=== PATIENT | female | born 1975 | race Caucasian/White ===

== ENCOUNTER 2020-06-30 17:24 | Emergency (ER) | payer OTHER ==
[~2020-06-30] VITALS: Ht 172.7 cm; Wt 82.1 kg
== END 2020-06-30 18:47 | disposition home or self-care (01) ==
LOC: ER 17:24
DX: S61.022A Laceration with foreign body of left thumb without damage to nail, initial encounter (principal); W26.0XXA Contact with knife, initial encounter; Y93.89 Activity, other specified; Y92.010 Kitchen of single-family (private) house as the place of occurrence of the external cause; Y99.8 Other external cause status

== ENCOUNTER → 2022-04-28 07:40 | Outpatient (CLI) | payer OTHER | END | disposition home or self-care (01) | LOC: LAB 07:40 | PROVIDERS: ATTEND Obstetrics & Gynecology | DX: E03.8 Other specified hypothyroidism (principal); E83.51 Hypocalcemia; E11.9 Type 2 diabetes mellitus without complications; N30.00 Acute cystitis without hematuria; I10 Essential (primary) hypertension ==

== ENCOUNTER 2022-04-28 08:12 | Outpatient (CLI) | payer OTHER | END 2022-04-28 08:21 | disposition home or self-care (01) | LOC: MAMO-SONO 08:12 | PROVIDERS: ATTEND Obstetrics & Gynecology | DX: N60.11 Diffuse cystic mastopathy of right breast (principal); N60.12 Diffuse cystic mastopathy of left breast; Z12.31 Encounter for screening mammogram for malignant neoplasm of breast ==

== ENCOUNTER 2023-03-27 07:02 | Outpatient (CLI) | payer OTHER | END 2023-03-27 07:04 | disposition home or self-care (01) | LOC: LAB 07:02 | PROVIDERS: ATTEND Obstetrics & Gynecology | DX: E06.3 Autoimmune thyroiditis (principal) ==

== ENCOUNTER → 2023-05-14 07:51 | Outpatient (CLI) | payer OTHER | END | disposition home or self-care (01) | LOC: LAB 07:51 | PROVIDERS: ATTEND Obstetrics & Gynecology | DX: E78.49 Other hyperlipidemia (principal); E03.8 Other specified hypothyroidism; N30.00 Acute cystitis without hematuria; E55.9 Vitamin D deficiency, unspecified; I10 Essential (primary) hypertension; Z12.11 Encounter for screening for malignant neoplasm of colon ==

== ENCOUNTER 2023-05-14 11:28 | Outpatient (CLI) | payer OTHER | END 2023-05-14 11:49 | disposition home or self-care (01) | LOC: MAMO-SONO 11:28 | PROVIDERS: ATTEND Obstetrics & Gynecology | DX: E04.1 Nontoxic single thyroid nodule (principal); N60.11 Diffuse cystic mastopathy of right breast; N60.12 Diffuse cystic mastopathy of left breast; Z12.31 Encounter for screening mammogram for malignant neoplasm of breast ==

== ENCOUNTER → 2023-10-31 07:39 | Outpatient (CLI) | payer OTHER ==
[2023-10-31 08:07] LABS: HEMOGLOBIN 13.4 g/dL (12.0-15.00); MEAN CELL VOLUME 84.6 fL (80.00-100.00); MEAN CORPUSCULAR HEMOGLOBIN 28.4 pg (27.00-32.0); MEAN CORPUSCULAR HGB CONC 33.6 g/dl (32.0-36.0); PLATELET COUNT 335 K/uL (150-450); RED BLOOD COUNT 4.72 M/uL (4.00-6.00); RED CELL DISTRIBUTION WIDTH 14.2 % (11.5-14.5)
[2023-10-31 08:09] LABS: URINE APPEARANCE Clear; URINE BILIRRUBIN Negative (NEGATIVE); URINE BLOOD Negative; URINE COLOR Yellow; URINE GLUCOSE Negative (NEGATIVE); URINE LEUKOCYTE Negative; URINE NITRATE Negative; URINE PROTEIN Negative (NEGATIVE)
[2023-10-31 08:10] LABS: URINE BACTERIA 85.6 uL (0.0-1933); URINE EPITHELIAL CELLS 4.3 uL (0.0-38.8); URINE RBC 3.8 uL (0.0-20.8); URINE WBC 1.8 uL (0.0-23.2)
[2023-10-31 08:53] LABS: URIC ACID 4.1 mg/dL (2.5-7.5)
[2023-10-31 08:58] LABS: ALBUMIN 3.9 gm/dL (3.4-5.0); BILIRUBIN TOTAL 1.15 mg/dL (0.3-1.2); CALCIUM 8.9 mg/dL (8.5-10.1); CHOL HDL RATIO 2.6 (0-5.0); CREATININE SERUM 0.82 mg/dL (0.55-1.02); GFR 75.39; GLOBULINA 3.3 G/DL (2.4-3.5); POTASSIUM 3.85 mEq/L (3.5-5.1); T4 FREE 0.87 NG/ML (0.76-1.46); TOTAL PROTEIN 7.2 gm/dL (6.4-8.2); TSH 2.29 uIU/mL (0.358-3.74)
[2023-10-31 10:13] LABS: RH POSITIVE
[2023-10-31 10:21] LABS: ob NEGATIVE (NEGATIVE)
== END | disposition home or self-care (01) ==
LOC: LAB 07:39
PROVIDERS: ATTEND Internal Medicine
DX: E78.5 Hyperlipidemia, unspecified (principal); Z13.0 Encounter for screening for diseases of the blood and blood-forming organs and certain disorders involving the immune mechanism; Z12.11 Encounter for screening for malignant neoplasm of colon; R79.89 Other specified abnormal findings of blood chemistry; N39.0 Urinary tract infection, site not specified; Z13.220 Encounter for screening for lipoid disorders; N18.9 Chronic kidney disease, unspecified; Z13.1 Encounter for screening for diabetes mellitus; Z13.29 Encounter for screening for other suspected endocrine disorder; Z01.83 Encounter for blood typing; E55.9 Vitamin D deficiency, unspecified; R80.9 Proteinuria, unspecified; Z13.89 Encounter for screening for other disorder; Z13.9 Encounter for screening, unspecified; R82.90 Unspecified abnormal findings in urine; K76.0 Fatty (change of) liver, not elsewhere classified

== ENCOUNTER → 2023-11-06 | Outpatient (CLI) | payer OTHER | END | disposition home or self-care (01) | LOC: RAD 13:34 | PROVIDERS: ATTEND Internal Medicine | DX: Z13.6 Encounter for screening for cardiovascular disorders (principal); Z13.83 Encounter for screening for respiratory disorder NEC ==

== ENCOUNTER → 2024-07-30 07:26 | Outpatient (CLI) | payer OTHER ==
[2024-07-30 08:13] LABS: PH,URINE 6.5 (5.0-8.0); URINE APPEARANCE Clear; URINE BILIRRUBIN Negative (NEGATIVE); URINE BLOOD Small; URINE COLOR Yellow; URINE GLUCOSE Negative (NEGATIVE); URINE KETONE Negative (NEGATIVE); URINE LEUKOCYTE Negative; URINE NITRATE Negative; URINE PROTEIN Negative (NEGATIVE); URINE UROBILINOGEN 0.2 E.U./dl
[2024-07-30 08:55] LABS: HEMATOCRIT 37.9 % (36.0-45.00); MEAN CELL VOLUME 83.1 fL (80.00-100.00); MEAN CORPUSCULAR HEMOGLOBIN 28.5 pg (27.00-32.0); MEAN CORPUSCULAR HGB CONC 34.4 g/dl (32.0-36.0); PLATELET COUNT 327 K/uL (150-450); RED BLOOD COUNT 4.56 M/uL (4.00-6.00); RED CELL DISTRIBUTION WIDTH 14.9 % (11.5-14.5)
[2024-07-30 09:23] LABS: URINE BACTERIA 74.3 uL (0.0-1933); URINE EPITHELIAL CELLS 8.9 uL (0.0-38.8); URINE RBC 4.8 uL (0.0-20.8)
[2024-07-30 09:33] LABS: URINE WBC 1.6 uL (0.0-23.2)
[2024-07-30 10:05] LABS: ALBUMIN 3.7 gm/dL (3.4-5.0); BILIRUBIN TOTAL 0.9 mg/dL (0.3-1.2); CHOL HDL RATIO 2.7 (0-5.0); CREATININE SERUM 0.75 mg/dL (0.55-1.02); GFR 83.19; GLOBULINA 3.2 G/DL (2.4-3.5); POTASSIUM 4.31 mEq/L (3.5-5.1); T4 FREE 0.87 NG/ML (0.76-1.46); TOTAL PROTEIN 6.9 gm/dL (6.4-8.2); TSH 3.09 uIU/mL (0.358-3.74)
[2024-07-30 11:43] LABS: VITAMIN D3 25 HYDROXY 58.73 ng/ml (30-120)
== END | disposition home or self-care (01) ==
LOC: LAB 07:26
PROVIDERS: ATTEND Internal Medicine Endocrinology, Diabetes & Metabolism
DX: E11.69 Type 2 diabetes mellitus with other specified complication (principal); E03.9 Hypothyroidism, unspecified; D64.9 Anemia, unspecified; E53.8 Deficiency of other specified B group vitamins; E78.2 Mixed hyperlipidemia; E55.9 Vitamin D deficiency, unspecified; N39.0 Urinary tract infection, site not specified; R97.0 Elevated carcinoembryonic antigen [CEA]; Z12.11 Encounter for screening for malignant neoplasm of colon; R19.00 Intra-abdominal and pelvic swelling, mass and lump, unspecified site; D25.9 Leiomyoma of uterus, unspecified

== ENCOUNTER 2024-07-30 07:49 | Outpatient (CLI) | payer OTHER | END 2024-07-30 07:55 | disposition home or self-care (01) | LOC: MAMO-SONO 07:49 | PROVIDERS: ATTEND General Practice | DX: E04.9 Nontoxic goiter, unspecified (principal); N60.11 Diffuse cystic mastopathy of right breast; N60.12 Diffuse cystic mastopathy of left breast; N63.0 Unspecified lump in unspecified breast; N64.0 Fissure and fistula of nipple ==

== ENCOUNTER 2024-08-01 07:25 | Outpatient (CLI) | payer OTHER | END 2024-08-01 07:41 | disposition home or self-care (01) | LOC: MRI 07:25 | PROVIDERS: ATTEND General Practice | DX: R10.2 Pelvic and perineal pain (principal); D25.9 Leiomyoma of uterus, unspecified; R19.00 Intra-abdominal and pelvic swelling, mass and lump, unspecified site | CPT/HCPCS: 72196 ==

== ENCOUNTER 2025-07-08 08:00 | Inpatient (IN) | payer OTHER ==
[~2025-07-08] VITALS: Ht 172.7 cm; Wt 83.5 kg
[2025-07-08] MEDS ORDERED: MULTIPLE VITAM1 EAC2 PO (09:49)
[2025-07-08 09:50] VITALS: BP 117/83
[2025-07-08 11:17] LABS: BASO % 1.3 % (0.1-1.2); EOS # 0.09 (0.04-0.54); EOS % 1.7 % (0.7-7.0); LYMPH # 1.61 (1.18-3.74); LYMPH % 30.5 % (19.3-53.1); MEAN PLATELET VOLUME 10.70 fl (9.4-12.4); MONO # 0.38 (0.24-0.82); MONO % 7.2 % (4.7-12.5); NEUT # 3.12 (1.56-6.13); NEUT % 59.1 % (34.0-71.1); RED CELL DISTRIBUTION WIDTH 14.0 % (11.6-14.4)
[2025-07-08 11:24] LABS: URINE APPEARANCE Clear; URINE BILIRRUBIN Negative (NEGATIVE); URINE BLOOD Negative; URINE COLOR Yellow; URINE GLUCOSE Negative (NEGATIVE); URINE KETONE Negative (NEGATIVE); URINE LEUKOCYTE Negative; URINE NITRATE Negative; URINE PROTEIN Negative (NEGATIVE); URINE UROBILINOGEN 0.2 E.U./dl
[2025-07-08 11:30] LABS: URINE BACTERIA 295.1 uL (0.0-1933); URINE CAST 0.00 uL (0.0-1.40); URINE EPITHELIAL CELLS 10.1 uL (0.0-38.8); URINE RBC 5.7 uL (0.0-20.8); URINE WBC 1.9 uL (0.0-23.2)
[2025-07-08 11:36] LABS: INR 0.97
[2025-07-08 12:08] LABS: ALT/SGPT 22.0 U/L (12-78); AST/SGOT 19.0 U/L (15-37); BILIRUBIN TOTAL 1.39 mg/dL (0.3-1.2); BUN CREA RATIO 26.0 (7.0-25.0); CREATININE SERUM 0.72 mg/dL (0.55-1.02); GFR 86.82; GLOBULINA 3.5 G/DL (2.4-3.5); GLUCOSE FASTING 75.0 mg/dL (65-100); OSMOLALITY SERUM 280.0 MOSM/KG (275-295)
[2025-07-14] MEDS ORDERED: VISTASEAL DUAL APPICATOR 1 EACH APPL TOP ONE ×2 (06:56→08:30)
[2025-07-14] MEDS ORDERED: POVIDONE-IODINE 118 ML BOTT TOP ONE ×2 (06:56→08:30)
[2025-07-14] MEDS ORDERED: THROMBIN,HU/FIBRINOGEN/CALCIUM 10 ML SYRINGE TOP ONE ×2 (06:57→08:30)
[2025-07-14] MEDS ORDERED: CEFOXITIN SODIUM 2,000 MG VIAL IV ONE (07:04)
[2025-07-14] MEDS ORDERED: METRONIDAZOLE/SODIUM CHLORIDE 500 MG/100 ML PIGGYBACK IV ONE ×2 (07:04→08:30)
[2025-07-14] MEDS ORDERED: HEPARIN SODIUM,PORCINE 5,000 UNITS/ML VIAL ONE (08:14)
[2025-07-14] MEDS ORDERED: HEPARIN SODIUM,PORCINE 5,000 UNITS/ML VIAL SPEPROC ONE (08:30)
[2025-07-14] MEDS ORDERED: CEFAZOLIN SODIUM 1,000 MG VIAL IV ONE (08:30)
[2025-07-14] MEDS ORDERED: SUGAMMADEX SODIUM 200 MG/2 ML VIAL IV ONE (10:18)
[2025-07-14] MEDS ORDERED: MORPHINE SULFATE 4 MG/ML CARTRIDGE IV PRN (16:00)
[2025-07-14] MEDS ORDERED: RINGERS SOLUTION,LACTATED 1,000 ML IV SCH (16:00)
[2025-07-14] MEDS ORDERED: KETOROLAC TROMETHAMINE 30 MG VIAL IV PRN (16:00)
[2025-07-14] MEDS ORDERED: ACETAMINOPHEN 500 MG GEL..CAP PO SCH (18:15)
[2025-07-14] MEDS ORDERED: GABAPENTIN 300 MG CAPSULE PO SCH (21:00)
[2025-07-14 21:54] VITALS: BP 112/64
[2025-07-15 01:16] VITALS: BP 95/60
[2025-07-15 08:00] VITALS: BP 91/56
[2025-07-15 08:00] LABS: BASO % 0.4 % (0.1-1.2); EOS # 0.13 (0.04-0.54); EOS % 1.4 % (0.7-7.0); LYMPH # 1.33 (1.18-3.74); LYMPH % 14.0 % (19.3-53.1); MEAN PLATELET VOLUME 10.80 fl (9.4-12.4); MONO # 0.69 (0.24-0.82); MONO % 7.3 % (4.7-12.5); NEUT # 7.28 (1.56-6.13); NEUT % 76.7 % (34.0-71.1); RED CELL DISTRIBUTION WIDTH 14.5 % (11.6-14.4)
[2025-07-15 10:43] LABS: BAND MAN 3.0 %; EOSINOPHIL MAN 3.0 %; LYMPHOCYTE MAN 18.0 %; MONOCYTE MAN 5.0 %; NEUTROPHILS MAN 70.0 %
== END 2025-07-15 10:12 | disposition home or self-care (01) | DRG 743 ==
LOC: SURG 07-14 07:00 → O/R 07-14 07:00 → SURG 07-14 08:00 → OB/GYN 07-14 08:51
PROVIDERS: ADMIT Student in an Organized Health Care Education/Training Program; ATTEND Student in an Organized Health Care Education/Training Program
PROC: 0TNB4ZZ Release Bladder, Percutaneous Endoscopic Approach (ICD-10-PCS; 2025-07-14)
PROC: 0UT74ZZ Resection of Bilateral Fallopian Tubes, Percutaneous Endoscopic Approach (ICD-10-PCS; 2025-07-14)
PROC: 8E0W4CZ Robotic Assisted Procedure of Trunk Region, Percutaneous Endoscopic Approach (ICD-10-PCS; 2025-07-14)
PROC: 0UT94ZZ Resection of Uterus, Percutaneous Endoscopic Approach (ICD-10-PCS; principal; 2025-07-14 07:00)
DX: N93.9 Abnormal uterine and vaginal bleeding, unspecified (principal); D25.9 Leiomyoma of uterus, unspecified
CPT/HCPCS: 58573; 57200; S2900

== ENCOUNTER 2025-08-14 07:58 | Outpatient (CLI) | payer OTHER ==
[~2025-08-14 07:58] MED LIST: MULTIPLE VITAM1 EAC2 PO
[2025-08-14 08:46] LABS: BASO % 1.6 % (0.1-1.2); EOS # 0.25 (0.04-0.54); EOS % 4.6 % (0.7-7.0); LYMPH # 1.76 (1.18-3.74); LYMPH % 32.2 % (19.3-53.1); MEAN PLATELET VOLUME 10.30 fl (9.4-12.4); MONO # 0.40 (0.24-0.82); MONO % 7.3 % (4.7-12.5); NEUT # 2.96 (1.56-6.13); NEUT % 54.1 % (34.0-71.1); RED CELL DISTRIBUTION WIDTH 14.6 % (11.6-14.4)
[2025-08-14 09:02] LABS: URINE APPEARANCE Clear; URINE BILIRRUBIN Negative (NEGATIVE); URINE BLOOD Negative; URINE COLOR Yellow; URINE GLUCOSE Negative (NEGATIVE); URINE KETONE Negative (NEGATIVE); URINE LEUKOCYTE Trace; URINE NITRATE Negative; URINE PROTEIN Negative (NEGATIVE); URINE UROBILINOGEN 0.2 E.U./dl
[2025-08-14 09:03] LABS: URINE BACTERIA 502.0 uL (0.0-1933); URINE EPITHELIAL CELLS 7.9 uL (0.0-38.8); URINE RBC 4.2 uL (0.0-20.8); URINE WBC 5.0 uL (0.0-23.2)
[2025-08-14 09:10] LABS: URINE CAST 0.00 uL (0.0-1.40)
[2025-08-14 09:24] LABS: ALT/SGPT 23.0 U/L (12-78); AST/SGOT 16.0 U/L (15-37); BILIRUBIN TOTAL 1.04 mg/dL (0.3-1.2); BUN CREA RATIO 22.0 (7.0-25.0); CHOL HDL RATIO 2.8 (0-5.0); CREATININE SERUM 0.77 mg/dL (0.55-1.02); GFR 80.35; GLOBULINA 3.5 G/DL (2.4-3.5); GLUCOSE FASTING 83.0 mg/dL (65-100); HDL 83.0 mg/dl (40-60); LDL 131.0 mg/dl (0-130); OSMOLALITY SERUM 280.0 MOSM/KG (275-295); T4 FREE 1.02 NG/ML (0.76-1.46); TSH 2.55 uIU/mL (0.358-3.74); VLDL 14.0 (0-39)
== END 2025-08-14 08:06 | disposition home or self-care (01) ==
LOC: LAB 07:58
DX: E78.5 Hyperlipidemia, unspecified (principal); Z13.0 Encounter for screening for diseases of the blood and blood-forming organs and certain disorders involving the immune mechanism; Z12.11 Encounter for screening for malignant neoplasm of colon; R79.89 Other specified abnormal findings of blood chemistry; N39.0 Urinary tract infection, site not specified; Z13.1 Encounter for screening for diabetes mellitus; Z13.29 Encounter for screening for other suspected endocrine disorder; E55.9 Vitamin D deficiency, unspecified; R80.9 Proteinuria, unspecified; Z13.89 Encounter for screening for other disorder; E21.3 Hyperparathyroidism, unspecified; K76.0 Fatty (change of) liver, not elsewhere classified; E04.0 Nontoxic diffuse goiter